=== PATIENT | male | born 1980 | race Caucasian/White ===

== ENCOUNTER → 2016-11-04 | Outpatient (CLI) | payer BC ==
[2016-11-04 16:05] LABS: BLOOD UREA NITROGEN 14 mg/dL (7-22); BUN/CREATININE RATIO 15.55 (6-20); CALCIUM 9.2 mg/dL (8.7-10.7); EST GLOMERULAR FILTRATION > 60 (>60 ml/min/1.73m(2))
[2016-11-04 16:22] LABS: FREE T4 (FREE THYROXINE) 0.62 ng/dL (0.93-1.71)
== END ==
LOC: MOB LAB 15:37
DX: E05.00 Thyrotoxicosis with diffuse goiter without thyrotoxic crisis or storm (principal); E03.9 Hypothyroidism, unspecified; I10 Essential (primary) hypertension
CPT/HCPCS: 36415; 80048; 84439; 84443

== ENCOUNTER → 2016-11-17 | Outpatient (CLI) | payer BC | LOC: MOB LAB 11:39 | DX: L02.416 Cutaneous abscess of left lower limb (principal) | CPT/HCPCS: 87070; 87077; 87186; 87205 ==

== ENCOUNTER → 2016-11-17 | Outpatient (CLI) | payer BC ==
[2016-11-17 11:05] LABS: HEMATOCRIT 42.4 % (42.0-52.0); HEMOGLOBIN 13.8 g/dL (14.0-18.0); MEAN CORPUSCULAR HEMOGLOBIN 27.9 PG (27-31); MEAN CORPUSCULAR HGB CONC 32.5 g/dL (33-37); MEAN CORPUSCULAR VOLUME 85.8 FL (80-90); MEAN PLATELET VOLUME 10.1 FL (7.4-12.2); RED BLOOD COUNT 4.94 10^6/uL (4.70-6.10)
[2016-11-17 11:22] LABS: HEMOGLOBIN A1C 7.55 % (4.2-6.0)
[2016-11-17 11:26] LABS: BLOOD UREA NITROGEN 19 mg/dL (7-22); CALCIUM 9.4 mg/dL (8.7-10.7); EST GLOMERULAR FILTRATION > 60 (>60 ml/min/1.73m(2))
[2016-11-18 15:01] LABS: RHEUMATOID FACTOR <15 IU/mL (<15)
== END ==
LOC: MOB LAB 10:22
DX: M25.571 Pain in right ankle and joints of right foot (principal); M25.572 Pain in left ankle and joints of left foot; M79.662 Pain in left lower leg; M79.661 Pain in right lower leg; I10 Essential (primary) hypertension; R73.9 Hyperglycemia, unspecified; M79.1 Myalgia; E89.0 Postprocedural hypothyroidism; E05.00 Thyrotoxicosis with diffuse goiter without thyrotoxic crisis or storm
CPT/HCPCS: 36415; 80048; 83036; 85027; 86038; 86200; 86431